=== PATIENT | male | born 1955 | race African-American/Black ===

== ENCOUNTER 2017-10-05 11:44 | Observation (INO) ==
--- NOTE | 2017-10-05 12:20 | ED ---
HPI General Chief Complaint: Chest Pain Stated Complaint: Chest Pain Time Seen by Provider: 10/05/17 11:52 Source: patient Limitations: no limitations History of Present Illness HPI narrative: Patient is a 62-year-old male, past medical history significant for HIV on HAART therapy with undetectable viral load, who presents with chief complaint of substernal chest pain that began while he was playing chest at 1030 this morning. It did not radiate and he is unsure if it had any dyspnea associated. He went to an outside hospital where he was given 325 mg of aspirin , as well as 2 sublingual nitroglycerin after which the pain has improved. He denies chest pain or dyspnea with walking upstairs or when walking several blocks. He was a former smoker but quit several years ago. He denies history of hypertension, hyperlipidemia, diabetes though he states a strong family history of such. He denies immobilization, leg swelling, and personal/family history of blood clot. No numbness nor weakness. MD complaint: chest pain Complete Quality Measures for STEMI Alert Patients STEMI Alert: No Onset (ago): hour(s) Time: 10:30 Duration: constant Onset: during rest Pain location: substernal Severity: moderate Quality: heaviness and sharp Pain radiation: none Relieving factors: nitroglycerin Exacerbating factors: nothing Treatments prior to arrival chest pain: aspirin and nitroglycerin Related Data Home Medications Medication Instructions Recorded Confirmed diphenhydramine HCl [Benadryl] 25 mg PO HS PRN 10/05/17 10/05/17 Allergies Allergy/AdvReac Type Severity Reaction Status Date / Time No Known Allergies Allergy Unverified 10/05/17 11:56 Review of Systems Except as stated in HPI: all other systems reviewed are negative Constitutional Denies fever(s) and Denies night sweats Eyes Denies blurry vision ENT Denies bleeding gums and Reports nasal congestion Cardiovascular Reports chest pain, Reports chest pain at rest, Denies diaphoresis, Denies syncope, Denies rapid heart rate, Denies edema, Denies claudication, Denies leg edema, Denies radiating jaw, neck or arm pain and Denies dyspnea on exertion Respiratory Reports cough, Denies hemoptysis and Denies dyspnea on exertion Gastrointestinal Denies nausea and Denies vomiting Genitourinary Denies dysuria Musculoskeletal Denies back pain, Denies muscle weakness and Denies numbness Integumentary/Breasts Denies rash Neurologic Denies headache(s), Denies numbness, Denies paresthesias and Denies weakness Psychiatric Denies anxiety Hematologic/Lymphatic Denies easy bruising [facility] Medical History Medical History HIV (human immunodeficiency virus infection) (Acute) Hypercholesteremia (Acute) Surgical History Surgical History No history of previous surgery (Acute) Social History Social History Substance History: Active Abuse Second Hand Smoke Exposure: No Smoking Status: Never smoker How Often Do You Have a Drink Containing Alcohol: 4 or more times a week Recent Travel in [facility] within the Last 8 Weeks: No Recent Out of Country Travel within the Last 8 Weeks: No Substance Abuse Detail Marijuana: Substance Use Status: Active Route Used Substance Abuse: Inhalation Immunization History Tetanus Immunization: <5 Years Hx Influenza Vaccine This Season: No Exam Narrative Exam Narrative: GENERAL: Ill-appearing, pleasant male in no acute distress. SKIN: Focused skin assessment warm/dry. HEAD: Atraumatic. Normocephalic. EYES: Pupils equal and round. No scleral icterus. No injection or drainage. ENT: No nasal bleeding or discharge. Mucous membranes pink and moist. NECK: Trachea midline. No JVD. CARDIOVASCULAR: Regular rate and rhythm. No murmur appreciated. Intact and equal peripheral pulses RESPIRATORY: No accessory muscle use. Clear to auscultation. Breath sounds equal bilaterally. GASTROINTESTINAL: Abdomen soft, non-tender, nondistended. Hepatic and splenic margins not palpable. MUSCULOSKELETAL: No obvious deformities. No clubbing. No cyanosis. No edema. NEUROLOGICAL: Awake and alert. No obvious cranial nerve deficits. Motor grossly within normal limits. Normal speech. PSYCHIATRIC: Appropriate mood and affect; insight and judgment normal. Course Hospital Course: Patient was placed on the machine pan greaser and IV was established. Initial EKG does not show acute ischemic changes. He has already received both aspirin and nitro at an outside hospital thus this was not given on arrival here. Labs were sent on patient arrival.. Initial Documented Vital Signs Pulse Rate 95 H 10/05/17 11:49 Respiratory Rate 20 10/05/17 11:49 Blood Pressure 127/71 10/05/17 11:49 Pulse Oximetry 96 07/19/18 11:49 Last Documented Vital Signs Pulse Rate 95 H 10/05/17 12:44 Respiratory Rate 20 10/05/17 11:49 Blood Pressure 127/71 10/05/17 11:49 Pulse Oximetry 96 10/05/17 12:44 Medical Decision Making MDM Narrative Medical decision making narrative: Patient is a 62-year-old male with history of HIV on heart therapy who presents with complaint of chest pain that began while playing chest today. He received aspirin and 2 sublingual nitro at an outside facility after which his pain substantially improved. Here his EKG is unremarkable. Chest x-ray is unremarkable. Labs showed creatinine of 1.48 with unclear baseline. Initial troponin is negative. He appears well and has been hemodynamically stable while in the emergency department. He will be placed in the chest pain center for serial troponins and likely stress test. Patient has been informed of all results all questions have been answered at this time. Differential Diagnosis Differential Diagnosis: Differential diagnosis includes but is not limited to acute myocardial infarction, unstable angina, GERD, esophagitis, pneumonia, aortic dissection, and pneumothorax. Lab Data Lab results reviewed: Yes I reviewed the patient's lab results. Lab results narrative: Labs show slight leukopenia consistent with his baseline HIV. Creatinine is 1.48 there is not any baseline with which to compare. Initial troponin is negative. Result diagrams: 10/05/17 12:45 10/05/17 13:30 Lab Results 10/05/17 10/05/17 Range/Units 12:45 13:30 WBC 3.1 L (4.0-11.0) th/mm3 RBC 4.80 (4.50-5.90) mil/mm3 Hgb 13.7 (13.0-17.0) gm/dL Hct 41.1 (39.0-51.0) % MCV 85.5 (80.0-100.0) fL MCH 28.6 (27.0-34.0) pg MCHC 33.4 (32.0-36.0) % RDW 13.0 (11.6-17.2) % Plt Count 204 (150-450) th/mm3 MPV 8.2 (7.0-11.0) fL Neut % (Auto) 58.7 (16.0-70.0) % Lymph % (Auto) 27.3 (9.0-44.0) % Taylor % (Auto) 11.9 H (0.0-8.0) % Eos % (Auto) 1.5 (0.0-4.0) % Baso % (Auto) 0.6 (0.0-2.0) % Neut # (Auto) 1.8 (1.8-7.7) th/mm3 Lymph # (Auto) 0.9 L (1.0-4.8) th/mm3 Taylor # (Auto) 0.4 (0.0-0.9) th/mm3 Eos # (Auto) 0.0 (0.0-0.4) th/mm3 Baso # (Auto) 0.0 (0.0-0.2) th/mm3 WBC Differential . Differential Comment Auto diff final Sodium 141 (136-145) meq/L Potassium 4.2 (3.5-5.1) meq/L Chloride 108 H (98-107) meq/L Carbon Dioxide 28.4 (21.0-32.0) meq/L Anion Gap 5 (5-15) meq/L BUN 12 (7-18) mg/dL Creatinine 1.48 H (0.60-1.30) mg/dL Estimated GFR 58 L (>89) mL/min Random Glucose 101 (74-106) mg/dL Calcium 8.4 L (8.5-10.1) mg/dL Troponin I Less than 0.02 L (0.02-0.05) ng/mL Imaging Data Attestation: I personally reviewed and interpreted this imaging study as follows : My impression: No acute cardiopulmonary process. Radiologist's impression: Chest X-Ray 10/05/17 12:07 CONCLUSION: No acute cardiopulmonary disease. ECG Data EKG Prior to Arrival: No Attestation: I personally reviewed and interpreted this ECG as follows: (Normal sinus rhythm with a rate of 95. There are no acute ST or T-wave changes.) Discharge Plan Discharge Disposition Patient Disposition: 30 Still Patient Discharge Condition Condition: Stable Discharge Details Diagnosis: Chest pain, rule out acute myocardial infarction, HIV (human immunodeficiency virus infection) Physicians Team ED Provider: Elisha Ahumada Primary Care Provider: [facility] R[facility] /Orders / Referrals /Forms Prescriptions: No Action diphenhydramine HCl [Benadryl] 25 mg Capsule 25 mg PO HS PRN (Reason: Insomnia) RF: 0 Discharge Instructions Patient Printed Instructions: Chest Pain (ED) Status ED Status: With Doctor
--- NOTE | 2017-10-05 13:04 | XR ---
EXAM DATE: 10/05/2017 12:37 PM EDT AGE/SEX: 62 years / Male INDICATIONS: . Chest pain. CLINICAL DATA: This is the patient's initial encounter. Patient reports that signs and symptoms have been present for 1 day and indicates a pain score of 9/10. MEDICAL/SURGICAL HISTORY: None. None. COMPARISON: No prior exams available for comparison. FINDINGS: PA and lateral views of the chest demonstrate the lungs to be symmetrically aerated without evidence of mass, infiltrate or effusion. The cardiomediastinal contours are unremarkable. Osseous structures are intact. CONCLUSION: No acute cardiopulmonary disease. Electronically signed by: Gio Weeks MD 10/05/2017 1:03 PM EDT
[2017-10-05 13:07] LABS: Baso % (Auto) 0.6 % (0.0-2.0); Eos % (Auto) 1.5 % (0.0-4.0); Hematocrit 41.1 % (39.0-51.0); Hemoglobin 13.7 gm/dL (13.0-17.0); Lymph # (Auto) 0.9 th/mm3 (1.0-4.8); Lymph % (Auto) 27.3 % (9.0-44.0); Mean Corpuscular HGB Conc 33.4 % (32.0-36.0); Mean Corpuscular Hemoglobin 28.6 pg (27.0-34.0); Mean Corpuscular Volume 85.5 fL (80.0-100.0); Mean Platelet Volume 8.2 fL (7.0-11.0); Mono # (Auto) 0.4 th/mm3 (0.0-0.9); Mono % (Auto) 11.9 % (0.0-8.0); Neut # (Auto) 1.8 th/mm3 (1.8-7.7); Neut % (Auto) 58.7 % (16.0-70.0); Platelet Count 204 th/mm3 (150-450); White Blood Count 3.1 th/mm3 (4.0-11.0)
[2017-10-05 14:17] LABS: Anion Gap 5 meq/L (5-15); Blood Urea Nitrogen 12 mg/dL (7-18); Calcium 8.4 mg/dL (8.5-10.1); Carbon Dioxide 28.4 meq/L (21.0-32.0); Chloride 108 meq/L (98-107); Glomerular Filtration Rate 58 mL/min (>89); Glucose,Random 101 mg/dL (74-106); Potassium 4.2 meq/L (3.5-5.1); Sodium 141 meq/L (136-145)
[2017-10-05] MEDS ORDERED: Acetaminophen 500 MG Tablet PO PRN (14:47)
--- NOTE | 2017-10-05 16:13 | P.HPCA ---
History of Present Illness Primary Care Physician: [facility] Chief Complaint: Chest pain History of Present Illness: 62-year-old male past medical history of HIV and hyperlipidemia presents to the ER for further evaluation of nonexertional chest pain. Onset 10:30 AM. Location left anterior chest. Characterized as stabbing. No radiation of pain. Severe in severity. No associated symptoms of nausea, vomiting, dyspnea , or diaphoresis. Hurts to take a deep breath, repositioning movements, and movement of left shoulder. No precipitating factors. Relieving factors aspirin and nitro SL. Nitro SL reduced pain to mild. Duration constant, currently mild pain. No recent illness, injury, or fever. Endorses situational stress, niece battling cancer and just returned from [place], [place] visiting her Monday morning. Recalls having a chemical stress test last year, reported to be normal. Friend drove him to [facility], which called EMS. - Diagnosis (1) Musculoskeletal chest pain Review of Systems No: All other systems reviewed negative except as stated in HPI PMFSH - History History Provided By: Patient (Past Cardiac Testing-Lexiscan reported to be normal completed approximately one year ago. Family history noncontributory for early onset cardiovascular disease. Dx with hyperlipidemia, diet controlled at this time. ) - Medical History Medical History: Medical History (Last Reviewed 10/05/17 @ 12:17 by Elisha Ahumada MD) HIV (human immunodeficiency virus infection) Hypercholesteremia - Surgical History Surgical History: Surgical History (Last Reviewed 10/05/17 @ 12:17 by Elisha Ahumada MD) No history of previous surgery - Tobacco History Second Hand Smoke Exposure: No Tobacco Use In Past 30 Days: No Smoking Status: Former smoker Tobacco Type: Cigarettes Packs Per Day: 0.5 Smoking End Date: 2003 - Alcohol History How Often Do You Have a Drink Containing Alcohol: 4 or more times a week - Substance Use History Substance History: Active Abuse - Substance Use Type Marijuana Status: Active Route Used: Inhalation - Travel History History of Recent Travel: Yes (Drove from [place], [place] returned Monday am) Recent Travel in the [facility] Within the Last 8 Weeks: No Recent Travel Out of the Country Within the Last 8 Weeks: No - Immunization History Tetanus Immunization: <5 Years Hx Influenza Vaccine This Season: No Medications and Allergies Active Medications: Active Medications Acetaminophen (Tylenol) 500 mg PO Q4H PRN PRN Reason: HEADACHE Aspirin (Aspirin) 325 mg PO DAILY AGUSTIN Nitroglycerin (Nitrostat Sl) 0.4 mg SL Q5M PRN PRN Reason: CHEST PAIN Sodium Chloride (Ns Flush) 2 ml IV.FLUSH UNSCH PRN PRN Reason: FLUSH AFTER USING IV ACCESS Sodium Chloride (Ns Flush) 2 ml IV.FLUSH BID AGUSTIN Allergies Allergy/AdvReac Type Severity Reaction Status Date / Time No Known Allergies Allergy Unverified 10/05/17 11:56 Home Medications Medication Instructions Recorded Confirmed Type diphenhydramine HCl [Benadryl] 25 mg PO HS PRN 10/05/17 10/05/17 History Exam Vital signs: Vital Signs 10/05/17 11:49 10/05/17 12:44 10/05/17 15:32 Pulse Rate 95 H 95 H Respiratory Rate 20 Blood Pressure 127/71 130/71 Pulse Oximetry 96 96 99 Intake & Output 10/04/17 10/05/17 10/05/17 18:59 06:59 18:59 Weight 94.801 kg - Constitutional no acute distress, cooperative - Routine HEENT Exam Head: Present: normocephalic, atraumatic Eye: Present: EOMI, PERRL, normal accommodation ENT: Present: mucous membranes moist - Routine Neck Exam Present: supple, full ROM. Absent: JVD - Routine Chest/Breast/Axilla Exam Chest wall: Present: tenderness (Left anterior chest discomfort reproduced with palpation) - Routine Respiratory Exam Present: CTA bilaterally - Routine Cardiovascular Exam Present: RRR. Absent: murmur, gallop, rubs - Routine Abdominal Exam Present: soft, normoactive bowel sounds. Absent: tenderness, distended, rebound , firm - Routine Extremities Exam Present: full ROM, tenderness. Absent: edema, joint swelling Comments: Left shoulder pain reproduced with palpation. - Routine Skin Exam Present: intact, warm, normal turgor - Routine Neurological Exam Present: alert, oriented X3, CN II-XII intact, moving all extremities Results 10/05/17 12:45 10/05/17 13:30 Cardiac Enzymes 10/05/17 Range/Units 13:30 Troponin I Less than 0.02 L (0.02-0.05) ng/mL CBC 10/05/17 Range/Units 12:45 WBC 3.1 L (4.0-11.0) th/mm3 RBC 4.80 (4.50-5.90) mil/mm3 Hgb 13.7 (13.0-17.0) gm/dL Hct 41.1 (39.0-51.0) % Plt Count 204 (150-450) th/mm3 Neut # (Auto) 1.8 (1.8-7.7) th/mm3 Lymph # (Auto) 0.9 L (1.0-4.8) th/mm3 [place]bud # (Auto) 0.4 (0.0-0.9) th/mm3 Eos # (Auto) 0.0 (0.0-0.4) th/mm3 Baso # (Auto) 0.0 (0.0-0.2) th/mm3 Comprehensive Metabolic Panel 10/05/17 Range/Units 13:30 Sodium 141 (136-145) meq/L Potassium 4.2 (3.5-5.1) meq/L Chloride 108 H (98-107) meq/L Carbon Dioxide 28.4 (21.0-32.0) meq/L BUN 12 (7-18) mg/dL Creatinine 1.48 H (0.60-1.30) mg/dL Calcium 8.4 L (8.5-10.1) mg/dL Intake and Output 10/05/17 10/05/17 10/05/17 06:59 14:59 22:59 Other: Weight 94.801 kg Patient Weight 10/06/17 06:59 Weight 94.801 kg EKG interpretations - EKG EKG results cardiology: WNL, sinus rhythm, normal axis, normal QRS, normal ST/T Caprini VTE Risk Assessment Caprini VTE Risk Assessment: Moderate/High Risk (score >= 2) Caprini Risk Assessment Model: Point Value = 1 Point Value = 2 Point Value = 3 Point Value = 5 Age 41-60 Minor surgery BMI > 25 kg/m2 Swollen legs Varicose veins or History of unexplained or recurrent spontaneous Oral contraceptives or hormone replacement Sepsis (< 1 month) Serious lung disease, including pneumonia (< 1 month) Abnormal pulmonary function Acute myocardial infarction Congestive heart failure (< 1 month) History of inflammatory bowel disease Medical patient at bed rest Age 61-74 Arthroscopic surgery Major open surgery (> 45 min) Laparoscopic surgery (> 45 min) Malignancy Confined to bed (> 72 hours) Immobilizing plaster cast Central venous access Age >= 75 History of VTE Family history of VTE Factor V Leiden Prothrombin [id number] Lupus anticoagulant Anticardiolipin antibodies Elevated serum homocysteine Heparin-induced thrombocytopenia Other congenital or acquired thrombophilia Stroke (< 1 month) Elective arthroplasty Hip, pelvis, or leg fracture Acute spinal cord injury (< 1 month) Prophylaxis Regimen: Total Risk Factor Score Risk Level Prophylaxis Regimen 0-1 Low Early ambulation 2 Moderate Order ONE of the following: *Sequential Compression Device (SCD) *Heparin 5000 units SQ BID 3-4 Higher Order ONE of the following medications: *Heparin 5000 units SQ TID *Enoxaparin/Lovenox 40 mg SQ daily (WT < 150 kg, CrCl > 30 mL/min) *Enoxaparin/Lovenox 30 mg SQ daily (WT < 150 kg, CrCl > 10-29 mL/min) *Enoxaparin/Lovenox 30 mg SQ BID (WT < 150 kg, CrCl > 30 mL/min) AND/OR *Sequential Compression Device (SCD) 5 or more Highest Order ONE of the following medications: *Heparin 5000 units SQ TID (Preferred with Epidurals) *Enoxaparin/Lovenox 40 mg SQ daily (WT < 150 kg, CrCl > 30 mL/min) *Enoxaparin/Lovenox 30 mg SQ daily (WT < 150 kg, CrCl > 10-29 mL/min) *Enoxaparin/Lovenox 30 mg SQ BID (WT < 150 kg, CrCl > 30 mL/min) AND *Sequential Compression Device (SCD) Assessment and Plan - Assessment (1) Musculoskeletal chest pain Code(s): R07.89 - Other chest pain Status: Acute Plan: Admitted to chest pain center. Continued ACS protocol initiated in ER including 3 sets of EKGs and cardiac enzymes. Will be seen and evaluated by Dr. Nicole Perez. Discomfort easily reproduced with palpation, suggesting musculoskeletal chest pain. Toradol 30mg IV x1 dose now. Discussed possible repeating Lexiscan tomorrow, as he reports inability to ambulate on treadmill. This will be determined after evaluation by security infrastructure engineer.
[2017-10-05] MEDS ORDERED: Ketorolac Inj 30 MG/ML (IVP) Vial IV.PUSH ONE (16:54)
--- NOTE | 2017-10-05 18:41 | ECG ---
Date Performed: 10/05/2017 Time Performed: 11:53:03 PTAGE: 62 years EKG: Sinus rhythm NORMAL ECG NO PREVIOUS TRACING DOCTOR: Ivan Solorzano Interpretating Date/Time 10/05/2017 18:39:25
[2017-10-05 20:38] LABS: Creatine Kinase 247 U/L (39-308)
[2017-10-05 23:18] LABS: Creatine Kinase 232 U/L (39-308)
[2017-10-06] MEDS ORDERED: [UNRECOGNIZED DRUG - OTHER] PO SCH (08:00)
[2017-10-06] MEDS ORDERED: Aspirin 325 MG Tablet PO SCH (09:00)
[2017-10-06] MEDS ORDERED: GENVOYA PO SCH (09:00)
[2017-10-06] MEDS ORDERED: Regadenoson Inj 0.4 MG/5 ML Syringe IV.PUSH ONE (09:17)
--- NOTE | 2017-10-06 10:34 | NM ---
EXAM DATE: 10/06/2017 10:28 AM EDT AGE/SEX: 62 years / Male INDICATIONS:Angina. . Left sided chest pain for one day. CLINICAL DATA: This is the patient's initial encounter. Patient reports that signs and symptoms have been present for 1 day and indicates a pain score of 6/10. MEDICAL/SURGICAL HISTORY: HIV. None. COMPARISON: No prior exams available for comparison. No external comparison. DOSE: 8.5 mCi Tc 99m Myoview at rest 25.4 mCi [id number] at stress 0.4 mg Lexiscan STRESS SYMPTOMS: Dyspnea and stomach pain. EJECTION FRACTION: 66 % TECHNIQUE: The patient underwent pharmacologic stress with infusion of prescribed dose. Continuous ECG tracing was monitored during stress. Gated SPECT imaging was performed after stress and conventi onal SPECT imaging was performed at rest. The examination was performed on a SPECT/CT scanner, both attenuation and non-corrected datasets were reviewed. FINDINGS: Distribution: The maximum perfused segment at stress is in the septal wall. Perfusion Study: The pattern of perfusion at stress is within normal limits. Gated Study: There are intact wall motion and wall thickening without hypokinetic or dyskinetic segm ents. The ejection fraction is calculated at 66%. RISK CATEGORY: Low (<1% Annual Motality Rate) CONCLUSION: 1. Unremarkable study. Electronically signed by: David Sesay MD 10/06/2017 10:33 AM EDT
--- NOTE | 2017-10-06 19:16 | ECG ---
Date Performed: 10/05/2017 Time Performed: 19:28:35 PTAGE: 62 years EKG: Sinus rhythm NORMAL ECG Since PREVIOUS TRACING , no significant change noted PREVIOUS TRACIN10/05/2017 16.04 DOCTOR: Nicole Perez Interpretating Date/Time 10/06/2017 19:14:46
--- NOTE | 2017-10-06 19:17 | ECG ---
Date Performed: 10/05/2017 Time Performed: 22:07:39 PTAGE: 62 years EKG: Sinus rhythm NORMAL ECG Since PREVIOUS TRACING , no significant change noted DOCTOR: Nicole Perez Interpretating Date/Time 10/06/2017 19:15:28
--- NOTE | 2017-10-06 19:20 | TR ---
Date Performed: 10/06/2017 Time Performed: 09:29:51 DOCTOR: Nicole Perez DRUG LIST: CLINICAL HISTORY: REASON FOR TEST: REASON FOR ENDING: OBSERVATION: CONCLUSION: Lexiscan stress test was performed under standard four minute protocol. Radionuclid e was injected one minute prior to ending the test. No electrocardiographic abormalities were present to suggest ischemia. Nuclear imaging and interpretation are pending. COMMENTS: no ischemia
--- NOTE | 2017-10-06 19:28 | ECG ---
Date Performed: 10/05/2017 Time Performed: 16:04:36 PTAGE: 62 years EKG: Sinus rhythm NORMAL ECG Since PREVIOUS TRACING , no significant change noted PREVIOUS TRACIN10/05/2017 11.53 DOCTOR: Nicole Perez Interpretating Date/Time 10/06/2017 19:27:18
== END 2017-10-06 11:27 | disposition home or self-care (01) ==
LOC: NEDA 11:44 → NEPE 11:44 → NEPFCDU 11:44 → NEDA 15:35 → NEPFCDU 15:38
PROVIDERS: ADMIT Internal Medicine Interventional Cardiology; ATTEND Internal Medicine Interventional Cardiology
DX: R07.89 Other chest pain; E78.00 Pure hypercholesterolemia, unspecified; E78.5 Hyperlipidemia, unspecified; Z87.891 Personal history of nicotine dependence; B20 Human immunodeficiency virus [HIV] disease